=== PATIENT | female | born 1990 | race Caucasian/White ===

== ENCOUNTER 2016-06-07 16:43 | Outpatient (CLI) | payer MEDICAID ==
[2016-06-07 17:58] LABS: APPEARANCE,URINE CLOUDY; BILIRUBIN,URINE NEGATIVE (NEGATIVE); GLUCOSE, URINE NEGATIVE (NEGATIVE); KETONES,URINE NEGATIVE (NEGATIVE); LEUKOCYTE ESTERASE,URINE NEGATIVE (NEGATIVE); NITRITE,URINE NEGATIVE (NEGATIVE); PROTEIN,URINE NEGATIVE (NEGATIVE); URINE SPECIFIC GRAVITY 1.009; UROBILINOGEN,URINE NEGATIVE mg/dL (<2.0)
--- NOTE | 2016-06-07 18:02 | L&D General Admission ---
General Admit Datetime Report Generated by CPN: 06/07/2016 18:00 INFORMATION Patient Age: 25 (06/07/2016 16:44:QS system process) EDC: 07/31/2016 00:00 (06/07/2016 17:18:Karina Quispe RN) : 3 (06/07/2016 17:18:Karina Quispe RN) Para: 1 (06/07/2016 17:18:Karina Quispe RN) Term: 0 (06/07/2016 17:18:Karina Quispe RN) : 1 (06/07/2016 17:18:Karina Quispe RN) Spontaneous Abortions: 1 (06/07/2016 17:18:Karina Quispe RN) Induced Abortions: 0 (06/07/2016 17:18:Karina Quispe RN) Livin (06/07/2016 17:18:Karina Quispe RN) Cesareans: 0 (06/07/2016 17:18:Karina Quispe RN) VBACs: 0 (06/07/2016 17:18:Karina Quispe RN) Ectopic: 0 (06/07/2016 17:18:Karina Quispe RN) Multiple Births: 0 (06/07/2016 17:18:Karina Quispe RN) Baby, Number in Womb: 1 (06/07/2016 17:18:Karina Quispe RN) CARE Primary Finance Admin: [facility] (06/07/2016 17:18:Karina Quispe RN) Month of 1st Visit: April (06/07/2016 17:18:Karina Quispe RN) Adequate Care: No (06/07/2016 17:18:Karina Quispe RN) Prepregnancy Weight (lb): 124 (06/07/2016 17:18:Karina Quispe RN) Prepregnancy Weight (kg): 56.4 (06/07/2016 17:18:QS system process) Height (in): 60 (06/07/2016 17:22:QS system process) ALLERGIES Medication Allergy: No (06/07/2016 17:18:Karina Quispe RN) Medication Allergies: No Known Allergies (05/08/2012) (06/07/2016 16:44:QS system process) Latex Allergy: No Latex Allergies (06/07/2016 17:18:Karina Quispe RN) COMMUNICATION Primary Language: Qatari (06/07/2016 17:18:Karina Quispe RN) Medical Tx Preferred Language: Qatari (06/07/2016 17:18:Karina Quispe RN) DEMOGRAPHICS Address: [address] [place] [id number] (06/07/2016 16:44:QS system process) Zipcode: [address] (06/07/2016 16:44:QS system process) Home (06/07/2016 16:44:QS system process) Work (06/07/2016 16:44:QS system process) N: [phone] (06/07/2016 16:44:QS system process) Next of Kin Name: CHRIS SOLOMON (06/07/2016 16:44:QS system process) Next of Kin (06/07/2016 16:44:QS system process) Next of Kin Relationship: SPO (06/07/2016 16:44:QS system process) Date of : 1990 (06/07/2016 16:44:QS system process) Marital Status: (06/07/2016 16:44:QS system process) Sex: Female (06/07/2016 16:44:QS system process) Race: (06/07/2016 16:44:QS system process) Ethnicity: Non- or (06/07/2016 16:44:QS system process) Holiness: Episcopal (06/07/2016 16:44:QS system process) DRUG AND ALCOHOL USE Alcohol: No (06/07/2016 17:18:Karina Quispe RN) Cigarettes: Former Smoker. [id number] (06/07/2016 17:18:Karina Quispe RN) Marijuana: No (06/07/2016 17:18:Karina Quispe RN) Cocaine: No (06/07/2016 17:18:Karina Quispe RN) Other Illicit Drugs: No (06/07/2016 17:18:Karina Quispe RN) VACCINE HISTORY Influenza Vaccine: No (06/07/2016 17:18:Karina Quispe RN) Pneumococcal Vaccine: No (06/07/2016 17:18:Karina Quispe RN) Tetanus Vaccine: Yes (06/07/2016 17:18:Karina Quispe RN) Tdap Vaccine: Yes (06/07/2016 17:18:Karina uQispe RN) Hepatitis B Vaccine: Yes (06/07/2016 17:18:Karina Quispe RN) Feeding Preference: Both (06/07/2016 17:18:Karina Quispe RN) Benefit of Breast Feed Discussed: Yes (06/07/2016 17:18:Karina Quispe RN) Circumcision: N/A (06/07/2016 17:18:Karina Quispe RN) Classes Attended: No (06/07/2016 17:18:Karina Quispe RN) Tubal Ligation: No (06/07/2016 17:18:Karina Quispe RN) Tubal Authorization Signed: N/A (06/07/2016 17:18:Karina Quispe RN) Consent: N/A (06/07/2016 17:18:Karina Quispe RN) Consent Signed: N/A (06/07/2016 17:18:Karina Quispe RN) Pain Management Plans: Epidural (06/07/2016 17:18:Karina Quispe RN) Plans for Labor and Delivery: None (06/07/2016 17:18:Karina Quispe RN) Support Person: [place] Solomon (06/07/2016 17:18:Karina Quispe RN) Support Person Relationship: (06/07/2016 17:18:Karina Quispe RN) Cultural/Spritual Practice: No (06/07/2016 17:18:Karina Quispe RN) Spir/Cult Dietary Needs: No (06/07/2016 17:18:Karina Quispe RN) LIVING SITUATION/DISCHARGE PLAN Living Arrangements: House (06/07/2016 17:18:Karina Quispe RN) Adequate Access to:: Electric; Heat; Refrigeration; Plumbing/Running water; Phone; Transportation (06/07/2016 17:18:Karina Quispe RN) WIC Program: Yes (06/07/2016 17:18:Karina Quispe RN) Discharge Respooler Person: India Solomon (06/07/2016 17:18:Karina Quispe RN) Person to Help after Discharge: India Solomon (06/07/2016 17:18:Karina Quispe RN) Currently Using Commun Resources: Yes (06/07/2016 17:18:Karina Quispe RN) Specify Current Resource Used: Medicaid (06/07/2016 17:18:Karina Quispe RN) Outside Agency/Patient Accounts Manager: Yes (06/07/2016 17:18:Karina Quispe RN) Car Seat for Discharge: Yes (06/07/2016 17:18:Karina Qiuspe RN) Adoption Requested: No (06/07/2016 17:18:Karina Quispe RN) Pt Contact w/ Post : N/A (06/07/2016 17:18:Karina Quispe RN)
[2016-06-07 18:13] LABS: URINE BARBITURATES SCREEN NEGATIVE; URINE METHADONE SCREEN NEGATIVE; URINE OPIATES LOW NEGATIVE; URINE PHENCYCLIDINE SCREEN NEGATIVE
--- NOTE | 2016-06-07 18:56 | Non Stress Test Report ---
Non Stress Test Datetime Report Generated by CPN: 06/07/2016 18:56 DEMOGRAPHIC EGA NST: 32.2 INDICATION Indication for Study: Ordered by Provider MONITORING Monitor Explained: Monitor Explained; Test Explained; Patient Verbalized Understanding Time on Monitor: 06/07/2016 17:28 Time off Monitor: 06/07/2016 18:38 NST Duration: 70 NST INTERVENTIONS NST Interventions: PO Hydration; Reposition Patient Physician Notified NST: Dr. Seo BABY A: [id number] BABY A Movement : Present Contraction Frequency : 0 Accelerations : 15X15 Decelerations : None Variability : Moderate 6-25bpm NST Review: Meets Criteria for Reactive NST NST Review and Verified By : IZA JEFFERY RN NST Results: Reactive NST REPORT Report Trigger: Send Report
== END 2016-06-07 18:47 | disposition home or self-care (01) ==
LOC: LC 16:43
PROVIDERS: ATTEND Obstetrics & Gynecology
PROC: 4A1HXCZ Monitoring of Products of Conception, Cardiac Rate, External Approach (ICD-10-PCS; principal; 2016-06-07)
DX: O26.893 Other specified pregnancy related conditions, third trimester (principal); R10.2 Pelvic and perineal pain; Z3A.32 32 weeks gestation of pregnancy
CPT/HCPCS: 59025; 80307; 81001

== ENCOUNTER 2016-06-28 23:45 | Outpatient (CLI) | payer MEDICAID ==
[2016-06-29 00:25] LABS: AMORPHOUS SEDIMENT,URINE TRACE /HPF; APPEARANCE,URINE CLEAR; BILIRUBIN,URINE NEGATIVE (NEGATIVE); GLUCOSE, URINE NEGATIVE (NEGATIVE); KETONES,URINE NEGATIVE (NEGATIVE); LEUKOCYTE ESTERASE,URINE NEGATIVE (NEGATIVE); NITRITE,URINE NEGATIVE (NEGATIVE); PROTEIN,URINE NEGATIVE (NEGATIVE); URINE SPECIFIC GRAVITY 1.014; UROBILINOGEN,URINE NEGATIVE mg/dL (<2.0)
[2016-06-29 00:36] LABS: URINE BARBITURATES SCREEN NEGATIVE; URINE METHADONE SCREEN NEGATIVE; URINE OPIATES LOW NEGATIVE; URINE PHENCYCLIDINE SCREEN NEGATIVE
--- NOTE | 2016-06-29 01:41 | Non Stress Test Report ---
Non Stress Test Datetime Report Generated by CPN: 06/29/2016 01:41 DEMOGRAPHIC Test Number: 2 EGA NST: 35.3 INDICATION Indication for Study: Other Indication for Study (NST) Other: labor check MONITORING Monitor Explained: Monitor Explained; Test Explained; Patient Verbalized Understanding Time on Monitor: 06/29/2016 00:05 Time off Monitor: 06/29/2016 00:56 NST Duration: 51 NST INTERVENTIONS NST Interventions: PO Hydration Physician Notified NST: Dr Neilsen BABY A: [id number] BABY A Movement : Present Contraction Frequency : 18 FHR Baseline : 150 Accelerations : 15X15 Decelerations : None Variability : Moderate 6-25bpm NST Review: Meets Criteria for Reactive NST NST Review and Verified By : K Nargis RN NST Results: Reactive NST REPORT Report Trigger: Send Report
== END 2016-06-29 01:13 | disposition home or self-care (01) ==
LOC: LC 23:45
PROVIDERS: ATTEND Specialist
PROC: 4A1HXCZ Monitoring of Products of Conception, Cardiac Rate, External Approach (ICD-10-PCS; principal; 2016-06-28)
DX: O47.03 False labor before 37 completed weeks of gestation, third trimester (principal); Z3A.35 35 weeks gestation of pregnancy
CPT/HCPCS: 59025; 80307; 81001

== ENCOUNTER 2016-07-04 14:56 | Outpatient (CLI) | payer MEDICAID ==
--- NOTE | 2016-07-04 15:41 | Non Stress Test Report ---
Non Stress Test Datetime Report Generated by CPN: 07/04/2016 15:40 DEMOGRAPHIC EGA NST: 36.1 INDICATION Indication for Study: Decreased Movement MONITORING Monitor Explained: Monitor Explained; Test Explained; Patient Verbalized Understanding Time on Monitor: 07/04/2016 15:16 Time off Monitor: 07/04/2016 15:39 NST Duration: 23 NST INTERVENTIONS NST Interventions: PO Hydration; Reposition Patient Physician Notified NST: P. Sheriff CNM BABY A: [id number] BABY A Movement : Present Contraction Frequency : 0 FHR Baseline : 145 Accelerations : 15X15 Decelerations : None Variability : Moderate 6-25bpm NST Review: Meets Criteria for Reactive NST NST Review and Verified By : DBellavance RNC NST Results: Reactive NST REPORT Report Trigger: Send Report
== END 2016-07-04 15:48 | disposition home or self-care (01) ==
LOC: LC 14:56
PROVIDERS: ATTEND Obstetrics & Gynecology
PROC: 4A1HXCZ Monitoring of Products of Conception, Cardiac Rate, External Approach (ICD-10-PCS; principal; 2016-07-04)
DX: O36.8130 Decreased fetal movements, third trimester, not applicable or unspecified (principal); Z3A.36 36 weeks gestation of pregnancy
CPT/HCPCS: 59025

== ENCOUNTER 2016-07-17 23:45 | Outpatient (CLI) | payer MEDICAID ==
[2016-07-18 00:12] LABS: APPEARANCE,URINE CLOUDY; BILIRUBIN,URINE NEGATIVE (NEGATIVE); GLUCOSE, URINE 50 mg/dL (NEGATIVE); KETONES,URINE NEGATIVE (NEGATIVE); LEUKOCYTE ESTERASE,URINE LARGE (NEGATIVE); NITRITE,URINE NEGATIVE (NEGATIVE); PROTEIN,URINE NEGATIVE (NEGATIVE); URINE SPECIFIC GRAVITY 1.017
[2016-07-18 00:26] LABS: URINE BARBITURATES SCREEN NEGATIVE; URINE METHADONE SCREEN NEGATIVE; URINE OPIATES LOW NEGATIVE; URINE PHENCYCLIDINE SCREEN NEGATIVE
[2016-07-18] MEDS ORDERED: HYDROXYZINE PAMOATE 50 MG CAPSULE ONE (01:51)
[2016-07-18] MEDS ORDERED: HYDROXYZINE PAMOATE 50 MG CAPSULE PO ONE (02:10)
--- NOTE | 2016-07-23 01:35 | Non Stress Test Report ---
Non Stress Test Datetime Report Generated by CPN: 07/23/2016 01:35 DEMOGRAPHIC Test Number: 4 EGA NST: 38.0 INDICATION Indication for Study: Ordered by Provider MONITORING Monitor Explained: Monitor Explained; Test Explained; Patient Verbalized Understanding Time on Monitor: 07/17/2016 23:57 Time off Monitor: 07/18/2016 00:36 NST Duration: 39 NST INTERVENTIONS NST Interventions: PO Hydration; Reposition Patient Physician Notified NST: Dr Alfredo BABY A: [id number] BABY A Movement : Present Contraction Frequency : occasional FHR Baseline : 140 Accelerations : 15X15 Decelerations : None Variability : Moderate 6-25bpm NST Review: Meets Criteria for Reactive NST NST Review and Verified By : DESIREE Montague Results: Reactive NST REPORT Report Trigger: Send Report
== END 2016-07-18 01:55 | disposition home or self-care (01) ==
LOC: LC 23:45
PROVIDERS: ATTEND Obstetrics & Gynecology
PROC: 4A1HXCZ Monitoring of Products of Conception, Cardiac Rate, External Approach (ICD-10-PCS; principal; 2016-07-17)
DX: O47.1 False labor at or after 37 completed weeks of gestation (principal); Z3A.38 38 weeks gestation of pregnancy
CPT/HCPCS: 59025; 81005; 80307; J3490

== ENCOUNTER 2016-07-23 01:34 | Outpatient (CLI) | payer MEDICAID ==
[2016-07-23 02:23] LABS: AMNISURE (ROM) NEGATIVE (NEGATIVE)
[2016-07-23 02:36] LABS: APPEARANCE,URINE SLIGHTLY-CLOUDY; BILIRUBIN,URINE NEGATIVE (NEGATIVE); GLUCOSE, URINE NEGATIVE (NEGATIVE); KETONES,URINE NEGATIVE (NEGATIVE); LEUKOCYTE ESTERASE,URINE LARGE (NEGATIVE); NITRITE,URINE NEGATIVE (NEGATIVE); PROTEIN,URINE NEGATIVE (NEGATIVE); UROBILINOGEN,URINE NEGATIVE mg/dL (<2.0)
[2016-07-23 02:50] LABS: URINE BARBITURATES SCREEN NEGATIVE; URINE METHADONE SCREEN NEGATIVE; URINE OPIATES LOW NEGATIVE; URINE PHENCYCLIDINE SCREEN NEGATIVE
--- NOTE | 2016-07-27 14:03 | Non Stress Test Report ---
Non Stress Test Datetime Report Generated by CPN: 07/27/2016 14:03 DEMOGRAPHIC Test Number: 5 EGA NST: 38.6 INDICATION Indication for Study: Ordered by Provider URINE RESULTS Urine Protein, NST: Negative Urine Ketones - NST: Negative Urine Glucose - NST: Negative Urine Blood - NST: Negative MONITORING Monitor Explained: Monitor Explained; Test Explained; Patient Verbalized Understanding Time on Monitor: 07/23/2016 01:48 Time off Monitor: 07/23/2016 03:40 NST Duration: 112 NST INTERVENTIONS NST Interventions: PO Hydration Physician Notified NST: Dr. Neilsen BABY A: [id number] BABY A Movement : Present Contraction Frequency : Irregular FHR Baseline : 140 Accelerations : 15X15 Decelerations : None Variability : Moderate 6-25bpm NST Review: Meets Criteria for Reactive NST NST Review and Verified By : Malik Dye RN NST Results: Reactive NST REPORT Report Trigger: Send Report
== END 2016-07-23 03:48 | disposition home or self-care (01) ==
LOC: LC 01:34
PROVIDERS: ATTEND Specialist
PROC: 4A1HXCZ Monitoring of Products of Conception, Cardiac Rate, External Approach (ICD-10-PCS; principal; 2016-07-23)
DX: O47.1 False labor at or after 37 completed weeks of gestation (principal); Z3A.38 38 weeks gestation of pregnancy
CPT/HCPCS: 59025; 80307; 81005; 84112

== ENCOUNTER 2016-07-27 13:52 | Inpatient (IN) | payer MEDICAID ==
[2016-07-27] MEDS ORDERED: RINGERS SOLUTION,LACTATED 1,000 ML IV ONE (14:19)
[2016-07-27] MEDS ORDERED: RINGERS SOLUTION,LACTATED 1,000 ML IV PRN (14:19)
[2016-07-27 14:58] LABS: APPEARANCE,URINE CLOUDY; GLUCOSE, URINE NEGATIVE (NEGATIVE)
[2016-07-27 14:59] LABS: BILIRUBIN,URINE NEGATIVE (NEGATIVE); KETONES,URINE NEGATIVE (NEGATIVE); LEUKOCYTE ESTERASE,URINE NEGATIVE (NEGATIVE); NITRITE,URINE NEGATIVE (NEGATIVE); PROTEIN,URINE NEGATIVE (NEGATIVE); URINE SPECIFIC GRAVITY 1.014; UROBILINOGEN,URINE NEGATIVE mg/dL (<2.0)
[2016-07-27 15:03] LABS: ABSOLUTE BASOPHILS # (AUTO) 0.1 10^3/uL (0.0-0.2); ABSOLUTE EOSINOPHILS # (AUTO) 0.1 10^3/uL (0.0-0.6); ABSOLUTE LYMPHOCYTES (AUTO) 1.6 10^3/uL (0.5-4.7); ABSOLUTE NEUT (AUTO) 9.5 10^3/uL (1.7-8.2); BASOPHILS % (AUTO) 0.4 % (0-2); EOSINOPHILS % (AUTO) 0.9 % (0-6); HEMATOCRIT 38.9 % (36.0-47.0); HEMOGLOBIN 13.2 g/dL (12.0-15.5); HGB HCT DIFFERENCE 0.7; LYMPHOCYTES % (AUTO) 12.9 % (13-45); MEAN CORPUSCULAR HEMOGLOBIN 29.7 pg (27.0-33.4); MEAN CORPUSCULAR HGB CONC 33.9 g/dL (32.0-36.0); MEAN CORPUSCULAR VOLUME 88 fl (80-97); MONOCYTES % (AUTO) 7.8 % (3-13); RED BLOOD COUNT 4.44 10^6/uL (3.72-5.28); RED CELL DISTRIBUTION WIDTH 14.4 % (11.5-14.0); WHITE BLOOD COUNT 12.1 10^3/uL (4.0-10.5)
[2016-07-27] MEDS ORDERED: MISOPROSTOL 0.2 MG TABLET ONE (15:13)
[2016-07-27] MEDS ORDERED: LIDOCAINE 1% INJ-PF (10 MG/ML) 30 ML SDV ONE (15:14)
[2016-07-27] MEDS ORDERED: FENTANYL/BUPIVACAINE/NS/PF 200 MCG/100 ML RTUINJ EPI ONE (15:14)
[2016-07-27] MEDS ORDERED: EPHEDRINE SULFATE INJ 50 MG/1 ML AMPULE ONE (15:14)
[2016-07-27] MEDS ORDERED: OXYTOCIN/NORMAL SALINE 20 UNIT/1,000 ML RTUINJ ONE (15:15)
[2016-07-27] MEDS ORDERED: BUPIVACAINE HCL 0.25 % INJ/PF (2.5 MG/1 ML) 30 ML VIAL ONE (15:15)
[2016-07-27 15:27] LABS: URINE BARBITURATES SCREEN NEGATIVE; URINE METHADONE SCREEN NEGATIVE; URINE OPIATES LOW NEGATIVE; URINE PHENCYCLIDINE SCREEN NEGATIVE
[2016-07-27] MEDS ORDERED: NALBUPHINE HCL INJ 10 MG/1 ML AMPULE ONE (15:52)
[2016-07-27] MEDS ORDERED: IBUPROFEN 800 MG TABLET ONE (21:31)
--- NOTE | 2016-07-27 22:36 | Admission Physical ---
Datetime Report Generated by CPN: 07/27/2016 22:36 CURRENT ADMISSION Hx Assessment: The History has been Reviewed and is Current Chief Complaint: Uterine Contractions Indication for Induction: Not Applicable Admit Plan: Admit to Unit; Initiate Labor Protocol ALLERGIES Medication Allergies: No Medication Allergies: No Known Allergies (07/27/2016) Medication Allergies: No Known Allergies (07/23/2016) Medication Allergies: No Known Allergies (07/18/2016) Medication Allergies: No Known Allergies (06/28/2016) Medication Allergies: No Known Allergies (05/08/2012) Latex: No Latex Allergies Food Allergies: none Environmental Allergies: none OBSTETRICAL HISTORY EDC: 07/31/2016 00:00 : 3 Para: 1 Term: 0 : 1 SAB: 1 IAB: 0 Ectopic: 0 Livin Cesareans: 0 VBACs: 0 Multiple Births: 0 Gestational Diabetes: No Rh Sensitization: No Incompetent Cervix: No EILEEN: No Infertility: No ART Treatment: No Uterine Anomaly: No IUGR: No Hx Previous C/S: No Macrosomia: No Hx Loss/Stillborn: No PIH: No Hx : No Placenta Previa/Abruption: No Depression/PP Depression: No PTL/PROM: No Post Hemorrhage: No Current Procedures: Ultrasound; NST Obstetrical History Comments: G1: 36 wk IOL for pre-e 2012 G2: SAB G3: current, late PNC SEE RECORDS Alcohol: No Marijuana : No Cocaine: No Other Illicit Drugs: No Cigarettes: Former Smoker. 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 Heart Disease: No Hosp/Surgery: No Autoimmune Disorder: No Anesthetic Complications: No Kidney Disease: No Abnormal Pap Smear: No Neuro/Epilepsy: No Psychiatric Disorders: Yes Other Medical Diseases: No Hepatitis/Liver Disease: No Significant Family History: No Varicosities/Phlebitis: No Trauma/Violence : No Thyroid Dysfunction: No Medical History Comments: Hx ovarian cysts tonsilectomy 2009 asthma add/adhd INFECTIOUS HISTORY Gonorrhea: No Genital Herpes: No Chlamydia: No Tuberculosis: No Syphilis: No Hepatitis: No HIV/AIDS Exposure: No Rash or Viral Illness: No HPV: No PHYSICAL EXAM General: Normal HEENT: Normal Neurologic: Normal Thyroid: Normal Heart: Normal Lungs: Normal Breast: Deferred Back: Normal Abdomen: Normal Genitourinary Exam: Normal Extremities: Normal DTRs: Normal Pelvic Type: Adequate Physical Exam Comments: GBS neg Vital Signs: Reviewed VAGINAL EXAM Dilatation: 5 Effacement: 90 Station: 1 MEMBRANES Membranes: Intact FETUS A EGA: 39.3 Monitoring: External US FHR- Baseline: 155 Variability: Moderate 6-25bpm Accelerations: 15X15 Decelerations: None Admit Comment: admitted to L_D in active labor, /vtx/-1, bulging BOW, uc's q 4, breathing with uc's Admit, epidural PLANS FOR LABOR AND DELIVERY Labor and Delivery: None Pain Management: Epidural Feeding Preference: Both Benefit of Breast Feed Discussed: Yes Circumcision: N/A INFORMED CONSENT Assignment: Ortiz Seo DO Signature: with User ID: [email or web address] : with User ID: [email or web address]
[2016-07-27] MEDS ORDERED: ZOLPIDEM TARTRATE 5 MG TABLET PO PRN (23:35)
[2016-07-27] MEDS ORDERED: GLYCERIN/WITCH HAZEL LEAF 1 EACH MED..PAD TP PRN (23:35)
[2016-07-27] MEDS ORDERED: MEASLES,MUMPS&RUBELLA VACC/PF 0.5 ML VIAL SUBCUT PRN (23:35)
[2016-07-27] MEDS ORDERED: NA PHOS,M-B/NA PHOS,DI-BA (ADULT) 133 ML ENEMA PR PRN (23:35)
[2016-07-27] MEDS ORDERED: PSEUDOEPHEDRINE HCL 30 MG TABLET PO PRN (23:35)
[2016-07-27] MEDS ORDERED: DIPH/PERTUSS(ACELL)/TETANUS VAC/PF 0.5 ML SYR (>=10YO) IM PRN (23:35)
[2016-07-27] MEDS ORDERED: MAGNESIUM HYDROXIDE SUSP 30 ML UDCUP PO PRN (23:35)
[2016-07-27] MEDS ORDERED: PROMETHAZINE HCL INJ 25 MG/1 ML VIAL IV PRN (23:35)
[2016-07-27] MEDS ORDERED: PROMETHAZINE HCL 25 MG TABLET PO PRN (23:35)
[2016-07-27] MEDS ORDERED: PROMETHAZINE HCL 25 MG SUPP.RECT PR PRN (23:35)
[2016-07-27] MEDS ORDERED: BENZOCAINE/MENTHOL AEROSOL SPRAY 56 ML TOP PRN (23:35)
[2016-07-27] MEDS ORDERED: ACETAMINOPHEN 650 MG SUPP.RECT PR PRN (23:35)
[2016-07-27] MEDS ORDERED: DIBUCAINE 1% OINTMENT 28 GM TP PRN (23:35)
[2016-07-27] MEDS ORDERED: DIPHENHYDRAMINE HCL 25 MG CAPSULE PO PRN (23:35)
[2016-07-27] MEDS ORDERED: ACETAMINOPHEN WITH CODEINE #3 TABLET PO PRN ×2 (23:35)
[2016-07-28] MEDS: IBUPROFEN 800 MG TABLET PO SCH ×3 (05:43→21:06)
[2016-07-28 07:06] LABS: HEMATOCRIT 34.2 % (36.0-47.0); HEMOGLOBIN 11.5 g/dL (12.0-15.5); HGB HCT DIFFERENCE 0.3; MEAN CORPUSCULAR HEMOGLOBIN 29.3 pg (27.0-33.4); MEAN CORPUSCULAR HGB CONC 33.5 g/dL (32.0-36.0); MEAN CORPUSCULAR VOLUME 88 fl (80-97); RED BLOOD COUNT 3.91 10^6/uL (3.72-5.28); RED CELL DISTRIBUTION WIDTH 14.8 % (11.5-14.0); WHITE BLOOD COUNT 14.1 10^3/uL (4.0-10.5)
--- NOTE | 2016-07-28 09:20 | PDOC PROGRESS REPORT ---
Subjective-OB Subjective: Post Delivery Day: 25 year old. Denies any needs at this time Physical Exam (OB) Vital Signs: Temp Pulse Resp BP Pulse Ox 97.7 F 72 14 127/76 H 100 07/28/16 08:36 07/28/16 08:36 07/28/16 08:36 07/28/16 08:36 07/28/16 08:36 Intake & Output 07/27/16 07/28/16 07/29/16 06:59 06:59 06:59 Weight 71.8 kg - Lochia Lochia Amount: Small 10-25 ml Lochia Color: Rubra/Red - Abdomen Description: Soft, Round Hernia Present: No Bowel Sounds: Normoactive Flatus Presence: Present Stool: No Fundal Description: Firm, Midline Fundal Height: u/u - u/2 Objective-Diagnostic Laboratory: 07/28/16 06:52 07/27/16 07/27/16 07/27/16 14:10 14:49 14:49 WBC 12.1 H RBC 4.44 Hgb 13.2 Hct 38.9 MCV 88 MCH 29.7 MCHC 33.9 RDW 14.4 H Plt Count 253 Seg Neutrophils % 78.0 Lymphocytes % 12.9 L Monocytes % 7.8 Eosinophils % 0.9 Basophils % 0.4 Absolute Neutrophils 9.5 H Absolute Lymphocytes 1.6 Absolute Monocytes 1.0 Absolute Eosinophils 0.1 Absolute Basophils 0.1 Urine Color STRAW Urine Appearance CLOUDY Urine pH 6.0 Ur Specific [place] 1.014 Urine Protein NEGATIVE Urine Glucose (UA) NEGATIVE Urine Ketones NEGATIVE Urine Blood NEGATIVE Urine Nitrite NEGATIVE Ur Leukocyte Esterase NEGATIVE Blood Type A POSITIVE Antibody Screen NEGATIVE 07/28/16 06:52 WBC 14.1 H RBC 3.91 Hgb 11.5 L Hct 34.2 L MCV 88 MCH 29.3 MCHC 33.5 RDW 14.8 H Plt Count 208 Seg Neutrophils % Lymphocytes % Monocytes % Eosinophils % Basophils % Absolute Neutrophils Absolute Lymphocytes Absolute Monocytes Absolute Eosinophils Absolute Basophils Urine Color Urine Appearance Urine pH Ur Specific [place] Urine Protein Urine Glucose (UA) Urine Ketones Urine Blood Urine Nitrite Ur Leukocyte Esterase Blood Type Antibody Screen
[2016-07-28] MEDS: DOCUSATE SODIUM 100 MG CAPSULE PO SCH ×2 (10:02→17:05)
[2016-07-28] MEDS: FERROUS SULFATE 325 MG TABLET PO SCH ×2 (10:02→17:05)
[2016-07-28] MEDS: FAMOTIDINE 20 MG TABLET PO SCH ×2 (10:02→21:06)
[2016-07-28] MEDS: PRENATAL VITAMIN W-O CA NO5/FE FUMARATE/FA CAPSULE PO SCH (10:03)
[2016-07-28] MEDS: SENNOSIDES/DOCUSATE 8.6-50 MG 1 EACH TABLET PO SCH (10:03)
--- NOTE | 2016-07-28 14:21 | Delivery Summary ---
Del Sum A-C Datetime Report Generated by CPN: 07/28/2016 14:21 DELIVERY PERSONNEL DELIVERY PERSONNEL: [phone];[id number] DELIVERY PERSONNEL: [phone] DELIVERY PERSONNEL: [phone] DELIVERY PERSONNEL: [phone] DELIVERY PERSONNEL: [phone] DELIVERY PERSONNEL: [phone] Delivery Doctor:: Kellen Caballero CNM Labor and Delivery Nurse:: Indira Angelo RNbrine process operator Nurse:: DESIREE Sheth/TIFF: Gracia Valentine CNA MATERNAL INFORMATION Delivery Anesthesia: Epidural Medications After Delivery: Pitocin Bolus-Please Comment Maternal Complications: None Provider Comments: delivery of viable female apgars 8/9 bulb suctioned on perineum OA infant to abdomen tactile stimulation elicits cry cord double clamped and cut by fob 3vc cord blood obtained placenta intact- pearson uterus explored uterus firm ebl 250 cc small periurethral skidmark not repaired hemostasis achieved pt bonding well with LABOR SUMMARY EDC: 07/31/2016 00:00 No. Babies in Womb: 1 Attempted: No Labor Anesthesia: Epidural LABOR INFORMATION Reason for Induction: Not Applicable Onset of Labor: 07/27/2016 14:10 Complete Dilatation: 07/27/2016 19:42 Oxytocin: N/A Group B Beta Strep: NEGATIVE MEMBRANES Membranes Rupture Method: Artificial Rupture of Membranes: 07/27/2016 17:45 Length of Rupture (hr): 2.12 Amniotic Fluid Color: Clear Amniotic Fluid Amount: Small Amniotic Fluid Odor: Normal STAGES OF LABOR Stage 1 hr: 5 Stage 1 min: 32 Stage 2 hr: 0 Stage 2 min: 10 Stage 3 hr: 0 Stage 3 min: 2 Total Time in Labor hr: 5 Total Time in Labor min: 44 VAGINAL DELIVERY Episiotomy: None Laceration Extension: N/A Laceration Type: None Laceration Repair: Not Applicable Sponge Count Correct: N/A Sharps Count Correct: Yes CSECTION DELIVERY Primary Indication: N/A Secondary Indication: N/A CSection Incidence: N/A Labor: N/A Elective: N/A CSection Incision: N/A BABY A INFORMATION Delivery Date/Time: 07/27/2016 19:52 Method of Delivery: Vaginal Method of Delivery: Vaginal Born in Route : No : N/A Forceps: N/A Vacuum Extraction: N/A Shoulder Dystocia : No PRESENTATION/POSITION BABY A Presentation: Cephalic Cephalic Presentation: Vertex Vertex Position: Occipital Posterior Breech Presentation: N/A PLACENTA INFORMATION BABY A Placenta Delivery Time : 07/27/2016 19:54 Placenta Method of Delivery: Spontaneous Placenta Method of Delivery: Spontaneous Placenta Status: Delivered SCORES BABY A Heart Rate 1 min: >100 bpm Resp Effort 1 min: Slow, Irregular Reflex Irritability 1 min: Cough or Sneeze or Pulls Away Muscle Tone 1 min: Active Motion Color 1 min: Body [place], Extremities Blue Resuscitation Effort 1 min: Tactile Stimulation SCORE 1 MIN: 8 Heart Rate 5 min: >100 bpm Resp Effort 5 min: Good Cry Reflex Irritability 5 min: Cough or Sneeze or Pulls Away Muscle Tone 5 min: Active Motion Color 5 min: Body [place], Extremities Blue SCORE 5 MIN: 9 INFANT INFORMATION BABY A Gestational Age at Delivery: 38.3 Gestational Status: Early Term- 37- 38.6 Weeks Infant Outcome : Liveborn Infant Condition : Stable Infant Sex: Female Sex: Female IDENTIFICATION BABY A ID Band Number: [id number] Mother's Name Verified: Yes Infant RN Verifying Infant: R Lucia, RNC Additional Verifying Personnel: K Nargis, RN CORD INFORMATION BABY A No. Cord Vessels: 3 Nuchal Cord : N/A Cord Blood Taken: Yes-For Storage (Mom's Blood type +) Infant Suction: Mouth; Nose ASSESSMENT BABY A Complications: Multiple Variable Decels Physical Findings at Delivery: Within Normal Limits Infant Respirations: Appears Normal Skin to Skin: Yes Preschool Special Education Teacher/ALS Called : No Infant Care By: Gael Barillas RN Transferred To: Nursery BABY B INFORMATION : N/A SIGNATURES Assignment: Ortiz Seo DO Signature: with User ID: [email or web address] : with User ID: [email or web address]
[2016-07-29] MEDS: IBUPROFEN 800 MG TABLET PO SCH (05:18)
[2016-07-29 09:13] VITALS: BP 122/72
--- NOTE | 2016-07-29 09:45 | PDOC PROGRESS REPORT ---
Subjective-OB Subjective: Post Delivery Day: 25 year old. Denies any needs at this time. Ready to go home. Physical Exam (OB) Vital Signs: Temp Pulse Resp BP Pulse Ox 98.1 F 64 14 122/72 99 07/29/16 08:13 07/29/16 08:13 07/29/16 08:13 07/29/16 08:13 07/29/16 08:13 Intake & Output 07/28/16 07/29/16 07/30/16 06:59 06:59 06:59 Intake Total 540 Balance 540 Weight 71.8 kg - Lochia Lochia Amount: Scant < 10 ml Lochia Color: Rubra/Red - Abdomen Description: Tender, Soft Hernia Present: No Bowel Sounds: Normoactive Flatus Presence: Present Stool: No Fundal Description: Firm, Midline Fundal Height: u/u - u/2 Objective-Diagnostic Laboratory: 07/28/16 06:52
--- NOTE | 2016-07-29 09:53 | PDOC DISCHARGE SUMMARY ---
Final Diagnosis Discharge Date: 07/29/16 - Final Diagnosis (1) Delivery normal Is this a current diagnosis for this admission?: Yes (2) History of pre-eclampsia Is this a current diagnosis for this admission?: Yes (3) Is this a current diagnosis for this admission?: Yes Discharge Data - Discharge Medication Home Medications: Pnv W-O Ca No5/Fe Fumarate/FA [-U Multiple Vitamin Capsule] 1 cap PO DAILY 05/08/12 Docusate Sodium [Colace 100 mg Capsule] 100 mg PO BID #30 capsule 07/29/16 Gestational Age: 38.3 wks Reason(s) for Admission: Onset of Labor Procedures: Ultrasound Intrapartum Procedure(s): Spontaneous Vaginal Delivery - [place] Data Baby 1 Female at 1 minute: 8 at 5 minutes: 9 Weight: 3.175 kg Home with Mother: Yes Complications: No - Diagnosis Test Laboratory: Temp Pulse Resp BP Pulse Ox 98.1 F 64 14 122/72 99 07/29/16 08:13 07/29/16 08:13 07/29/16 08:13 07/29/16 08:13 07/29/16 08:13 07/27/16 07/27/16 07/28/16 14:10 14:49 06:52 RBC 4.44 3.91 Hgb 13.2 11.5 L Hct 38.9 34.2 L Urine Opiates Screen NEGATIVE - Discharge information/Instructions Discharge Activity: Activity As Tolerated, Balance Activity w/Rest, Pelvic Rest , Slowly Increase Activity, No tub bath Discharge Diet: Regular Disposition: HOME, SELF-CARE Follow [facility] with: [facility] in: 4, Weeks
[2016-07-29] MEDS: FAMOTIDINE 20 MG TABLET PO SCH (09:55)
[2016-07-29] MEDS: DOCUSATE SODIUM 100 MG CAPSULE PO SCH (09:55)
[2016-07-29] MEDS: FERROUS SULFATE 325 MG TABLET PO SCH (09:56)
[2016-07-29] MEDS: SENNOSIDES/DOCUSATE 8.6-50 MG 1 EACH TABLET PO SCH (09:56)
[2016-07-29] MEDS: PRENATAL VITAMIN W-O CA NO5/FE FUMARATE/FA CAPSULE PO SCH (09:56)
== END 2016-07-29 13:05 | disposition home or self-care (01) | DRG 775 ==
LOC: LC 13:52 → LR 14:21 → 2S 22:35
PROVIDERS: ADMIT Obstetrics & Gynecology; ATTEND Obstetrics & Gynecology
PROC: 10E0XZZ Delivery of Products of Conception, External Approach (ICD-10-PCS; principal; 2016-07-27)
PROC: 4A1HXCZ Monitoring of Products of Conception, Cardiac Rate, External Approach (ICD-10-PCS; 2016-07-27)
PROC: 3E0234Z Introduction of Serum, Toxoid and Vaccine into Muscle, Percutaneous Approach (ICD-10-PCS; 2016-07-27)
DX: O76 Abnormality in fetal heart rate and rhythm complicating labor and delivery (principal); O99.52 Diseases of the respiratory system complicating childbirth; J45.909 Unspecified asthma, uncomplicated; Z87.891 Personal history of nicotine dependence; Z23 Encounter for immunization
CPT/HCPCS: 36415; 80307; 81005; 85025; 85027; 86592; 86850; 86900; 86901; 90707; 94760; J2300; J2590; J3490